=== PATIENT | female | born 1980 | race African-American/Black ===

== ENCOUNTER 2022-11-26 10:03 | Emergency (ER) | payer MEDICAID, OTHER ==
[~2022-11-26] VITALS: Ht 167.6 cm; Wt 93.0 kg
[2022-11-26 10:51] VITALS: BP 133/85; PULSE 72; RESP 16; TEMP 97.8; O2SAT 99
[2022-11-26] MEDS ORDERED: IBUP-1454 PO (11:15)
[2022-11-26] MEDS ORDERED: CYCL-839 PO (11:15)
[2022-11-26] MEDS ORDERED: KETOROLAC TROMETH 60MG/2ML VIAL IM ONE (11:30)
== END 2022-11-26 11:45 | disposition home or self-care (01) ==
LOC: ER 10:03
DX: M54.50 Low back pain, unspecified (principal); Z79.1 Long term (current) use of non-steroidal anti-inflammatories (NSAID); Z79.899 Other long term (current) drug therapy; V89.2XXA Person injured in unspecified motor-vehicle accident, traffic, initial encounter; Y93.I9 Activity, other involving external motion; Y92.89 Other specified places as the place of occurrence of the external cause; Y99.8 Other external cause status

== ENCOUNTER 2023-09-17 08:25 | Inpatient (IN) | payer MEDICAID, OTHER ==
[~2023-09-17] VITALS: Ht 167.6 cm; Wt 97.8 kg
[~2023-09-17 08:25] MED LIST: CYCL-839 PO; IBUP-1454 PO
[2023-09-17 08:48] LABS: Basophils # (auto) 0.1 10 ^3/uL (0-0.2); Eosinophils # (auto) 0.2 10 ^3/uL (0-0.8); Eosinophils % (auto) 2.3 % (0.0-7.0); Hemoglobin 13.2 g/dL (12.2-16.2); Monocytes # (auto) 0.6 10 ^3/uL (0-1.3); Nucleated Red Blood Cells % 0.1 %; White Blood Cell 8.1 10^3/uL (4.4-10.8)
[2023-09-17 08:50] LABS: Basophils % (auto) 1.1 % (0.0-2.0); Lymphocytes # (auto) 2.9 10 ^3/uL (0.4-5.4); Lymphocytes % (auto) 36.2 % (10.0-50.0); Mean Corpuscular Hemoglobin 27.5 pg (28.0-32.0); Mean Corpuscular Volume 83.3 fL (80.0-100.0); Monocytes % (auto) 7.8 % (0.0-12.0); Neutrophils # (auto) 4.3 10 ^3/uL (1.6-8.6); Neutrophils % (auto) 52.6 % (37.0-80.0)
[2023-09-17 09:14] LABS: INR 0.98 (0.9-1.15); Partial Thromboplastin Time 30.2 SEC (24.5-34.5); Prothrombin Time 10.4 sec (9.3-11.8)
[2023-09-17 09:17] LABS: Alanine Aminotransferase 12 U/L (7-40); Albumin 4.4 g/dL (3.2-4.8); Alkaline Phosphatase 70 U/L (46-116); Anion Gap 2 (5-15); Aspartate Aminotransferase 9 U/L (13-40); Calcium 9.4 mg/dL (8.5-10.1); Carbon Dioxide 24 mmol/L (20-30); Chloride 109 mmol/L (98-107); Glucose 106 mg/dL (74-106); Magnesium 1.8 mg/dL (1.6-2.6); Potassium 4.2 mmol/L (3.5-5.1); Sodium 135 mmol/L (136-145)
[2023-09-17 09:18] LABS: Bilirubin, Total 0.4 mg/dL (0.2-1.0); Total Protein 7.3 g/dL (5.7-8.2)
[2023-09-17 09:21] LABS: Blood Urea Nitrogen < 5 mg/dL (9-23)
[2023-09-17 09:48] VITALS: PULSE 94
[2023-09-17] MEDS: dilTIAZem 25 MG/5 ML VIAL IV ONE (10:15)
[2023-09-17] MEDS ORDERED: MORPHINE SULFATE INJ 2 MG/ml SYRG IV PRN (11:15)
[2023-09-17] MEDS ORDERED: MORPHINE SULFATE 4 MG/ML SYR/VIAL IV PRN (11:15)
[2023-09-17] MEDS ORDERED: ACETAMINOPHEN 325 MG TAB PO PRN (11:15)
[2023-09-17] MEDS ORDERED: ONDANSETRON HCL 4 MG/2 ML VIAL IV PRN (11:15)
[2023-09-17] MEDS ORDERED: NITROGLYCERIN 0.4 MG SL TAB SL PRN ×2 (11:15)
[2023-09-17] MEDS: ENOXAPARIN SOD 100 MG/1 ML SYRINGE SC SCH (11:47)
[2023-09-17 12:07] LABS: Magnesium 1.8 mg/dL (1.6-2.6)
[2023-09-17 12:08] LABS: Phosphorus 3.2 mg/dL (2.4-5.1)
[2023-09-17 12:24] LABS: INR 1.01 (0.9-1.15); Prothrombin Time 10.7 sec (9.3-11.8)
[2023-09-17 13:26] LABS: Triglycerides 113 mg/dL (< 150)
[2023-09-17 13:27] LABS: LDL Cholesterol 137 mg/dL (< 100)
[2023-09-17 13:28] LABS: Cholesterol 197 mg/dL (< 200); HDL Cholesterol 49 mg/dL (40-59)
[2023-09-17] MEDS: MAGNESIUM OXIDE 400 MG TAB PO ONE (16:45)
[2023-09-17 20:00] VITALS: RESP 16
[2023-09-17] MEDS: ATORVASTATIN 20 MG TAB PO SCH (21:59)
[2023-09-17] MEDS: METOPROLOL TARTRATE 25 MG TAB PO SCH (22:00)
[2023-09-18 00:55] VITALS: BP 111/69; PULSE 67; RESP 20; TEMP 97.9; O2SAT 95
[2023-09-18 05:00] VITALS: BP 110/90; PULSE 68; RESP 20; TEMP 98.1; O2SAT 96
[2023-09-18 08:00] VITALS: PULSE 75; PULSE 90; RESP 20; O2SAT 96
[2023-09-18 09:00] VITALS: BP 133/83; PULSE 75; RESP 20; TEMP 98.1; O2SAT 100
[2023-09-18 09:06] LABS: Basophils # (auto) 0.1 10 ^3/uL (0-0.2); Basophils % (auto) 1.1 % (0.0-2.0); Eosinophils # (auto) 0.2 10 ^3/uL (0-0.8); Eosinophils % (auto) 3.4 % (0.0-7.0); Hematocrit 39.8 % (36.0-46.0); Hemoglobin 12.8 g/dL (12.2-16.2); Lymphocytes # (auto) 2.7 10 ^3/uL (0.4-5.4); Lymphocytes % (auto) 37.8 % (10.0-50.0); Mean Corpuscular Hemoglobin 26.9 pg (28.0-32.0); Mean Corpuscular Hgb Conc. 32.2 g/dL (32.0-36.0); Mean Corpuscular Volume 83.5 fL (80.0-100.0); Monocytes # (auto) 0.5 10 ^3/uL (0-1.3); Monocytes % (auto) 7.2 % (0.0-12.0); Neutrophils # (auto) 3.7 10 ^3/uL (1.6-8.6); Neutrophils % (auto) 50.5 % (37.0-80.0); Nucleated Red Blood Cells % 0.1 %; Red Blood Cells 4.76 10^6/uL (4.0-5.20); Red Cell Distribution Width 14.6 % (11.8-14.3); White Blood Cell 7.2 10^3/uL (4.4-10.8)
[2023-09-18 09:36] LABS: Alanine Aminotransferase 12 U/L (7-40); Albumin 4.2 g/dL (3.2-4.8); Alkaline Phosphatase 63 U/L (46-116); Anion Gap 0 (5-15); Aspartate Aminotransferase < 8 U/L (13-40); BUN/Creatinine Ratio 7.8 (10.0-20.0); Bilirubin, Total 0.4 mg/dL (0.2-1.0); Blood Alcohol < 3.0 mg/dL (<10); Blood Urea Nitrogen 6 mg/dL (9-23); Calcium 9.3 mg/dL (8.5-10.1); Carbon Dioxide 27 mmol/L (20-30); Chloride 108 mmol/L (98-107); Cholesterol 172 mg/dL (< 200); Glucose 97 mg/dL (74-106); HDL Cholesterol 42 mg/dL (40-59); LDL Cholesterol 120 mg/dL (< 100); Magnesium 1.8 mg/dL (1.6-2.6); Phosphorus 3.2 mg/dL (2.4-5.1); Sodium 135 mmol/L (136-145); Total Protein 6.9 g/dL (5.7-8.2); Triglycerides 135 mg/dL (< 150)
[2023-09-18] MEDS ORDERED: ASPirin 81 mg TAB PO SCH (10:00)
[2023-09-18] MEDS: DOCUSATE SOD 100 MG CAP PO SCH (10:13)
[2023-09-18] MEDS: APIXABAN 5 MG TAB PO SCH (10:14)
[2023-09-18] MEDS: METOPROLOL SUCCINATE XL 50 MG TAB PO SCH (10:14)
[2023-09-18 13:00] VITALS: BP 122/77; PULSE 69; RESP 20; TEMP 98; O2SAT 97
[2023-09-18] MEDS ORDERED: APIX5TAB PO (14:07)
[2023-09-18] MEDS ORDERED: METO-289 PO (14:07)
[2023-09-18 14:18] VITALS: BP 133/83; PULSE 75
== END 2023-09-18 15:11 | disposition home or self-care (01) | DRG 201 ==
LOC: ER 08:25 → TELE 11:15 → TELE-WESTW 22:30
PROVIDERS: ADMIT Internal Medicine; ATTEND Internal Medicine
DX: I48.20 Chronic atrial fibrillation, unspecified (principal); E66.9 Obesity, unspecified; E78.5 Hyperlipidemia, unspecified; Z68.34 Body mass index [BMI] 34.0-34.9, adult
CPT/HCPCS: 36415; 71045; 80053; 80061; 80320; 83036; 83735; 83880; 84100; 84443; 84484; 85025; 85610; 85730; 93005; 93306; 99291; G0378